=== PATIENT | female | born 1990 | race American Indian/Alaskan Native ===

== ENCOUNTER 2021-01-05 10:50 | Emergency (ER) | payer OTHER ==
[2021-01-05 11:05] VITALS: BP 118/79; PULSE 118; TEMP 100; BMI 30.2
[2021-01-05] MEDS ORDERED: ACETAMINOPHEN 325 MG TABLET (FP) PO ONE (12:27)
[2021-01-05] MEDS ORDERED: ACETAMINOPHEN 325 MG TABLET (FP) ONE (12:51)
== END 2021-01-05 14:32 | disposition home or self-care (01) ==
LOC: JER 10:50
DX: M79.10 Myalgia, unspecified site (principal); R50.9 Fever, unspecified
CPT/HCPCS: 99283-25; C9803; U0003; U0005

== ENCOUNTER 2021-06-14 14:26 | Emergency (ER) | payer OTHER ==
[2021-06-14 14:50] VITALS: BP 114/68; PULSE 89; TEMP 97.7; BMI 30.2
[2021-06-14 16:22] LABS: EPI CELLS 7 /uL (0-25.1); HYALINE CASTS 1 /uL (0-3.1); URINE APPEARANCE CLEAR; URINE BACTERIA 754 /uL (0-1359); URINE BILIRUBIN NEGATIVE (NEGATIVE); URINE COLOR YELLOW; URINE GLUCOSE (UA) NEGATIVE (NEGATIVE); URINE KETONE TRACE (NEGATIVE); URINE LEUK ESTERASE 2+ (NEGATIVE); URINE NITRITE NEGATIVE (NEGATIVE); URINE PROTEIN NEGATIVE (NEGATIVE); URINE RBC 291 /uL (0-23.9); URINE UROBILINOGEN 0.2 mg/dL (0.2-1.0); URINE WBC 185 /uL (0-25.8)
[2021-06-14 16:44] LABS: BASO % 0.5 % (0-2.0); EOS % 2.5 % (0-4.5); HEMATOCRIT 35.5 % (32.4-45.2); HEMOGLOBIN 11.7 GM/dL (10.7-15.3); LYMPH % 22.5 % (8-40); MCH 26.9 pg (25.7-33.7); MCHC 32.9 g/dl (32.0-36.0); MEAN CELL VOLUME 81.7 fl (80-96); MEAN PLT VOLUME 7.7 fl (7.5-11.1); MONO % 6.5 % (3.8-10.2); PLATELET COUNT 373 10^3/uL (134-434); RBC 4.35 M/mm3 (3.60-5.2); RDW 15.5 % (11.6-15.6); WHITE BLOOD COUNT 8.8 K/mm3 (4.0-10.0)
[2021-06-14 17:02] LABS: CALCIUM 9.2 mg/dL (8.5-10.1)
[2021-06-14 17:03] LABS: BLOOD UREA NITROGEN 11.1 mg/dL (7-18)
[2021-06-14 17:06] LABS: CREATININE 0.6 mg/dL (0.55-1.3)
== END 2021-06-14 19:33 | disposition home or self-care (01) ==
LOC: JERFT 14:26 → JER 14:26 → JERFT 19:33
DX: O26.851 Spotting complicating pregnancy, first trimester (principal); O23.41 Unspecified infection of urinary tract in pregnancy, first trimester; Z3A.01 Less than 8 weeks gestation of pregnancy
CPT/HCPCS: 36415; 76817-TC; 80048; 81003; 84702; 85025; 86850; 86900; 86901; 87086; 99284-25

== ENCOUNTER 2021-06-16 19:41 | Emergency (ER) | payer OTHER ==
[2021-06-16 20:05] VITALS: BP 112/67; PULSE 98; TEMP 98.1; BMI 30.9
[2021-06-16 21:30] LABS: BASO % 0.4 % (0-2.0); EOS % 3.7 % (0-4.5); HEMATOCRIT 32.9 % (32.4-45.2); HEMOGLOBIN 10.7 GM/dL (10.7-15.3); LYMPH % 30.5 % (8-40); MCH 26.5 pg (25.7-33.7); MCHC 32.4 g/dl (32.0-36.0); MEAN CELL VOLUME 81.7 fl (80-96); NEUT % 57.4 % (42.8-82.8); PLATELET COUNT 357 10^3/uL (134-434); RBC 4.03 M/mm3 (3.60-5.2); RDW 15.3 % (11.6-15.6); WHITE BLOOD COUNT 7.1 K/mm3 (4.0-10.0)
[2021-06-16 21:44] LABS: CHLORIDE 107 mmol/L (98-107); SODIUM 140 mmol/L (136-145)
[2021-06-16 21:45] LABS: CALCIUM 9.4 mg/dL (8.5-10.1)
[2021-06-16 21:46] LABS: ANION GAP 6 MMOL/L (8-16); BLOOD UREA NITROGEN 9.5 mg/dL (7-18); CO2 27 mmol/L (21-32); GLUCOSE,RANDOM 100 mg/dL (74-106)
[2021-06-16 21:49] LABS: CREATININE 0.6 mg/dL (0.55-1.3)
== END 2021-06-16 23:24 | disposition home or self-care (01) ==
LOC: JER 19:41
DX: O02.1 Missed abortion (principal)
CPT/HCPCS: 36415; 76817-TC; 80048; 84702; 85025; 99284-25